=== PATIENT | female | born 1985 | race Caucasian/White ===

== ENCOUNTER → 2018-09-09 | Outpatient (CLI) | payer BC ==
[2018-09-09 12:39] LABS: Basophils % (A) 0 %; Eosinophils % (A) 1 %; HCT 40.6 % (34.0-46.0); HGB 13.4 gm/dL (11.4-16.0); Lymphocytes # (A) 2.7 k/uL (1.0-4.8); Lymphocytes % (A) 36 %; MCH 28.9 pg (25.0-35.0); MCHC 32.9 g/dL (31.0-37.0); MCV 87.7 fL (80.0-100.0); Mean Platelet Volume 6.4; Monocytes # (A) 0.4 k/uL (0-1.0); Monocytes % (A) 6 %; Neutrophils # (A) 4.2 k/uL (1.3-7.7); Neutrophils % (A) 56 %; Platelet Count 231 k/uL (150-450); RBC 4.63 m/uL (3.80-5.40); RDW 12.3 % (11.5-15.5); WBC 7.6 k/uL (3.8-10.6)
[2018-09-09 18:42] LABS: ALT 21 U/L (8-44); AST 21 U/L (13-35); Albumin/Globulin Ratio 2.05 (1.60-3.17); Alkaline Phosphatase 73 U/L (41-126); Calcium 9.3 mg/dL (8.7-10.3); Carbon Dioxide 23.5 mmol/L (21.6-31.8); Chloride 111 mmol/L (96-109); Cholesterol 163 mg/dL (0-200); Globulin 2.1 g/dL (1.6-3.3); Glucose 88 mg/dL (70-110); Potassium 4.3 mmol/L (3.5-5.5); Sodium 142 mmol/L (135-145); Total Bilirubin 0.3 mg/dL (0.3-1.2); Total Protein 6.4 g/dL (6.2-8.2)
[2018-09-09 20:36] LABS: Hemoglobin A1C 5.3 % (4.0-6.0)
== END ==
LOC: LABWHC1 11:43
PROVIDERS: ATTEND Family Medicine
DX: I10 Essential (primary) hypertension (principal); Z79.899 Other long term (current) drug therapy
CPT/HCPCS: 36415; 80053; 80061; 83036; 84439; 84443; 84481; 85025

== ENCOUNTER 2019-04-12 04:21 | Emergency (ER) | payer BC ==
[2019-04-12 04:34] VITALS: RESP 18
[2019-04-12 05:03] LABS: Basophils % (A) 0 %; Eosinophils % (A) 0 %; HCT 42.3 % (34.0-46.0); HGB 14.9 gm/dL (11.4-16.0); Lymphocytes % (A) 30 %; MCHC 35.3 g/dL (31.0-37.0); MCV 87.7 fL (80.0-100.0); Mean Platelet Volume 5.3; Monocytes # (A) 0.4 k/uL (0-1.0); Monocytes % (A) 4 %; Neutrophils # (A) 6.4 k/uL (1.3-7.7); Neutrophils % (A) 64 %; Platelet Count 260 k/uL (150-450); RBC 4.82 m/uL (3.80-5.40); RDW 13.3 % (11.5-15.5)
[2019-04-12 05:11] LABS: ALT 35 U/L (9-52); AST 28 U/L (14-36); African American GFR (CKD) >90 (>60 ml/min/1.73 sqM); Albumin 4.2 g/dL (3.5-5.0); Alkaline Phosphatase 70 U/L (38-126); Anion Gap 12 mmol/L; Blood Urea Nitrogen 11 mg/dL (7-17); Calcium 9.2 mg/dL (8.4-10.2); Carbon Dioxide 21 mmol/L (22-30); Chloride 107 mmol/L (98-107); Glucose 115 mg/dL (74-99); Magnesium 2.1 mg/dL (1.6-2.3); Potassium 3.6 mmol/L (3.5-5.1); Sodium 140 mmol/L (137-145); Total Bilirubin 0.5 mg/dL (0.2-1.3); Total Protein 6.9 g/dL (6.3-8.2)
--- NOTE | 2019-04-12 05:24 | XR ---
EXAMINATION TYPE: XR chest 2V DATE OF EXAM: 04/12/2019 COMPARISON: NONE HISTORY: Chest pain TECHNIQUE: Frontal and lateral views of the chest are obtained. FINDINGS: Heart and mediastinum are normal. Lungs are clear. Diaphragm is normal. Bony thorax appear s normal. There are chest leads. IMPRESSION: Normal chest.
--- NOTE | 2019-04-12 05:48 | ED ---
Chest Pain HPI - General Chief Complaint: Chest Pain Stated Complaint: Chest Pain, Anxiety Time Seen by Provider: 04/12/19 04:37 Source: patient, EMS Mode of arrival: EMS - History of Present Illness Initial Comments: This patient is a 33-year-old woman who presents to be evaluated for chest tightness and tingling to the bilateral hands and feet. The patient states that symptoms had come on tonight. They were not exertional. She began feeling very anxious and noted that she is having tingling to both hands and feet. EMS was called and has brought the patient here to be evaluated. She states that she is feeling much better since EMS arrival and that her symptoms have pretty much resolved now. MD Complaint: chest pain Onset/Timin -: hour(s) Onset: during rest Pain Location: substernal Pain Radiation: none Severity: moderate Quality: tightness Consistency: now resolved Improves With: nothing Worsens With: nothing Other Symptoms: other (Paresthesias) Treatments Prior to Arrival: none - Related Data Allergies Allergy/AdvReac Type Severity Reaction Status Date / Time No Known Allergies Allergy Verified 04/12/19 04:49 Review of Systems ROS Statement: Those systems with pertinent positive or pertinent negative responses have been documented in the HPI. ROS Other: All systems not noted in ROS Statement are negative. Constitutional: Denies: fever, chills Respiratory: Denies: cough, dyspnea, wheezes Cardiovascular: Reports: chest pain. Denies: palpitations, dyspnea on exertion, syncope Gastrointestinal: Denies: abdominal pain, nausea, vomiting Genitourinary: Denies: dysuria, hematuria Musculoskeletal: Denies: back pain Skin: Denies: rash Neurological: Reports: paresthesias. Denies: headache, weakness, numbness Psychiatric: Reports: anxiety EKG Findings - EKG Results: EKG: interpreted by MALLIKA IZQUIERDO, sinus rhythm (At 79 bpm), normal axis, normal QRS, normal ST/T, no acute changes Past Medical History Additional Past Medical History / Comment(s): hypothyroid History of Any Multi-Drug Resistant Organisms: None Reported Past Surgical History: Tubal Ligation Smoking Status: Current every day smoker Past Alcohol Use History: Occasional Past Drug Use History: None Reported General Exam General appearance: alert, in no apparent distress Head exam: Present: atraumatic, normocephalic Eye exam: Present: normal appearance. Absent: scleral icterus, conjunctival in jection ENT exam: Present: normal oropharynx Neck exam: Present: full ROM, thyromegaly (Diffusely enlarged thyroid). Absent: tenderness, lymphadenopathy Respiratory exam: Present: normal lung sounds bilaterally. Absent: respiratory distress, wheezes, rales, rhonchi, stridor Cardiovascular Exam: Present: regular rate, normal rhythm, normal heart sounds. Absent: systolic murmur, diastolic murmur, rubs, gallop GI/Abdominal exam: Present: soft. Absent: distended, tenderness, guarding, rebound, rigid, mass Extremities exam: Present: normal inspection, normal capillary refill. Absent: pedal edema, calf tenderness Back exam: Present: normal inspection. Absent: CVA tenderness (R), CVA tenderness (L) Neurological exam: Present: alert Skin exam: Present: warm, dry, intact, normal color. Absent: rash Course Vital Signs 04/12/19 04/12/19 04:22 06:14 Temperature 97.9 F 98.3 F Pulse Rate 88 92 Respiratory 18 18 Rate Blood Pressure 112/87 125/81 O2 Sat by Pulse 98 99 Oximetry Chest Pain MDM - MDM Patient is a 33-year-old woman presenting with anxiety, and chest tightness that have resolved. Her chest symptoms do seem related to anxiety. The patient has not had recent follow-up regarding her thyroid which is diffusely enlarged. I did provide the patient with a prescription to have ultrasound and patient will follow-up with endocrinology. Discussed appropriate return parameters. Disposition Clinical Impression: Chest pain, Panic attack Disposition: HOME SELF-CARE Condition: Good Instructions (If sedation given, give patient instructions): Chest Pain (ED) Additional Instructions: As we discussed, follow up with the radiology division to have ultrasound of your thyroid gland and also follow-up with the costume maker as we discussed. Should there be any difficulty with the follow-up plan return here. Is patient prescribed a controlled substance at d/c from ED?: No Referrals: Stepan Hamlin MD [Primary Care Provider] - 1-2 days Bernice Wu MD [STAFF PHYSICIAN] - 1-2 days
[2019-04-12 06:15] VITALS: BP 125/81; PULSE 92; TEMP 98.3
== END 2019-04-12 06:15 | disposition home or self-care (01) ==
LOC: EC 04:21
DX: F41.0 Panic disorder [episodic paroxysmal anxiety] (principal); E04.9 Nontoxic goiter, unspecified; F17.200 Nicotine dependence, unspecified, uncomplicated
CPT/HCPCS: 36415; 71046; 80053; 83735; 84443; 84484; 85025; 93005; 99285

== ENCOUNTER → 2019-11-09 | Outpatient (CLI) | payer BC ==
[2019-11-09 18:40] LABS: African American GFR (CKD) 135.9 (60.0-200.0); Albumin 4.4 g/dL (3.80-4.90); Anion Gap 6.3 mmol/L (4.00-12.00); BUN/Creat Ratio 21.67 Ratio (12.00-20.00); Calcium 9.4 mg/dL (8.7-10.3); Carbon Dioxide 23.7 mmol/L (21.6-31.8); Globulin 2.2 g/dL (1.6-3.3); Non-African American GFR(CKD) 117.3 (60.0-200.0); Potassium 4.4 mmol/L (3.5-5.5); Total Bilirubin 0.3 mg/dL (0.2-1.2); Total Protein 6.6 g/dL (6.2-8.2)
[2019-11-09 19:08] LABS: Folate, Serum 12.7 ng/mL
[2019-11-09 23:13] LABS: Hemoglobin A1C 5.3 % (4.0-6.0)
== END | disposition home or self-care (01) ==
LOC: LABWHC1 11:29
PROVIDERS: ATTEND Family Medicine
DX: I10 Essential (primary) hypertension (principal); E11.9 Type 2 diabetes mellitus without complications
CPT/HCPCS: 36415; 80053; 82607; 82746; 83036; 84443

== ENCOUNTER → 2019-11-16 | Outpatient (CLI) | payer BC ==
--- NOTE | 2019-11-16 12:48 | US ---
EXAMINATION TYPE: US thyroid st tissue head/neck DATE OF EXAM: 11/16/2019 COMPARISON: NONE CLINICAL HISTORY: R22.0 Swelling/Mass. Thyromegaly, patient on thyroid medication GLAND SIZE: Right Lobe: 7.0 x 3.2 x 3.8 cm Overall Parenchyma: homogenous Left Lobe: 6.3 x 2.3 x 3.0 cm Overall Parenchyma: homogeneous Isthmus Thickness: 1.3 cm NODULES RIGHT: # of nodules measured on right: 0 LEFT: # of nodules measured on left: 0 ISTHMUS: # of nodules measured in the isthmus: 0 Bilateral neck scanned, no evidence of lymphadenopathy. IMPRESSION: Fairly homogeneous but diffusely enlarged thyroid without focal nodule.
== END | disposition home or self-care (01) ==
LOC: RADUSWWP 10:31
PROVIDERS: ATTEND Family Medicine
DX: E04.9 Nontoxic goiter, unspecified (principal)
CPT/HCPCS: 76536

== ENCOUNTER 2020-01-24 02:12 | Emergency (ER) | payer BC ==
[2020-01-24 02:18] VITALS: BP 123/86; PULSE 75; RESP 18; TEMP 98.1
--- NOTE | 2020-01-24 03:02 | ED ---
General Adult HPI - General Chief complaint: Extremity Problem,Nontraumatic Stated complaint: Ring stuck on finger Time Seen by Provider: 01/24/20 02:18 Source: patient, RN notes reviewed, old records reviewed Mode of arrival: ambulatory Limitations: no limitations - History of Present Illness Initial comments: 34-year-old female patient presents to ED with chief complaint wearing stuck on left finger. Patient was that she has been trying only to get off. She has tried multiple techniques including using a string using lubrication icing her hand. None of them have been effective. She denies any other complaints. - Related Data Allergies Allergy/AdvReac Type Severity Reaction Status Date / Time No Known Allergies Allergy Verified 01/24/20 02:18 Review of Systems ROS Statement: Those systems with pertinent positive or pertinent negative responses have been documented in the HPI. ROS Other: All systems not noted in ROS Statement are negative. Past Medical History Additional Past Medical History / Comment(s): hypothyroid History of Any Multi-Drug Resistant Organisms: None Reported Past Surgical History: Tubal Ligation Past Psychological History: No Psychological Hx Reported Smoking Status: Current every day smoker Past Alcohol Use History: Occasional Past Drug Use History: None Reported General Exam - General Exam Comments Initial Comments: Constitutional: NAD, AOX3, Pt has pleasant affect. HEENT: NC/AT, trachea midline, neck supple.External ears appear normal, without discharge. Mucous membranes moist. Eyes PERRLA, EOM intact. There is no scleral icterus. No pallor noted. Cardiopulmonary: RRR, no murmurs, rubs or gallops, no JVD noted. Lungs CTAB in anterior and posterior steel. No peripheral edema. Neuro: CN II-XII grossly intact. No nuchal rigidity. No raccon eyes, no soto sign, no hemotympanum. No cervical spinal tenderness. MSK: Ring noted on left ring finger. Unable to be removed with manipulation. Attempted to use lubrication that was also ineffective. Capillary refill <2 seconds. Full active ROM in upper and lower extremities. Limitations: no limitations Course Vital Signs 01/24/20 02:14 Temperature 98.1 F Pulse Rate 75 Respiratory 18 Rate Blood Pressure 123/86 O2 Sat by Pulse 98 Oximetry Procedures - Procedures Initial comment: Removal of ring left fourth digit. Cut off with ring cutter. Patient tolerated procedure well. Medical Decision Making - Medical Decision Making 34-year-old female patient received chief complaint Ring stuck on finger. Patient without signs stable, afebrile. Patient consented to me cutting off the ring. The ring was removed. Patient is feeling much improved. Full active range of motion of digit. No tenderness. Capillary refill less than 2 seconds. She'll be discharged to follow up with primary care provider will return to ER if condition worsens. Case discussed with Dr. Haque. Disposition Clinical Impression: Constrictive jewelry of finger Disposition: HOME SELF-CARE Condition: Stable Additional Instructions: Follow-up with primary care provider in 1-2 days. Return to ER if condition worsens. Is patient prescribed a controlled substance at d/c from ED?: No Referrals: Stepan Hamlin MD [Primary Care Provider] - 1-2 days
== END 2020-01-24 03:10 | disposition home or self-care (01) ==
LOC: EC 02:12
DX: S60.454A Superficial foreign body of right ring finger, initial encounter (principal); W49.04XA Ring or other jewelry causing external constriction, initial encounter
CPT/HCPCS: 99283

== ENCOUNTER → 2020-02-06 | Outpatient (CLI) | payer BC ==
[2020-02-06 21:49] LABS: T4, Free (Free Thyroxine) 0.5 ng/dL (0.80-1.80)
== END | disposition home or self-care (01) ==
LOC: LABWHC1 12:25
PROVIDERS: ATTEND Family Medicine
DX: I10 Essential (primary) hypertension (principal); E05.90 Thyrotoxicosis, unspecified without thyrotoxic crisis or storm
CPT/HCPCS: 36415; 84439; 84443; 84481

== ENCOUNTER → 2021-09-11 | Outpatient (CLI) | payer BC ==
--- NOTE | 2021-09-12 09:37 | NM ---
EXAMINATION TYPE: NM thyroid image w uptake DATE OF EXAM: 09/12/2021 COMPARISON: Ultrasound 11/16/2019 HISTORY: E05.20 TECHNIQUE: Thyroid iodine uptake is calculated and images performed after the oral administration of 321 uCi 1-123 Capsule. FINDINGS: There is normal distribution of activity throughout the gland. The 4 hour iodine uptake is calculated at greater than 90% (normal range 8-14%). The 24-hour iodine uptake is calculated at grea ter than 90% (normal range 15-35%). Gland is enlarged. No focal cold nodule or hot nodule evident. IMPRESSION: Correlate for Graves' disease
== END | disposition home or self-care (01) ==
LOC: RADNMMAIN 08:50
PROVIDERS: ATTEND Internal Medicine Endocrinology, Diabetes & Metabolism
DX: E04.9 Nontoxic goiter, unspecified (principal)
CPT/HCPCS: 78014; A9516